=== PATIENT | female | born 1995 | race American Indian/Alaskan Native ===

== ENCOUNTER 2017-10-23 15:30 | Emergency (ER) | payer SELFPAY ==
[2017-10-23 15:38] VITALS: BP 132/76; PULSE 105; RESP 18; TEMP 98.1; O2SAT 99
--- NOTE | 2017-10-23 15:58 | C.PDOC ---
History Of Present Illness 22 y/o female presents to the ED for evaluation of right ankle pain which began yesterday. Patient states she tripped, fell and injured her right ankle yesterday. Patient was evaluated at [facility] (Former[facility]) and was diagnosed with an avulsion fracture/sprain. Patient had a fiberglass splint applied to the area. Patient presents to the ED today stating that her pain has persisted and the splint has become loose. She reports pain is 4/10 in severity to her medial malleolus area. She denies any new trauma/injuries and has no other complaints at this time. Time Seen by Provider: 10/23/17 15:42 Chief Complaint (Nursing): Lower Extremity Problem/Injury History Per: Patient History/Exam Limitations: no limitations Onset/Duration Of Symptoms: Hrs Current Symptoms Are (Timing): Still Present Pain Scale Rating Of: 4 Additional History Per: Patient - Ankle/Foot Description Of Injury: Fell Past Medical History Reviewed: Historical Data, Nursing Documentation, Vital Signs Vital Signs: Last Vital Signs Temp 98.1 F 10/23/17 15:33 Pulse 105 H 10/23/17 15:33 Resp 18 10/23/17 15:33 BP 132/76 10/23/17 15:33 Pulse Ox 99 10/23/17 22:36 - Medical History PMH: Bipolar Disorder Surgical History: No Surg Hx Family History: States: Unknown Family Hx - Social History Hx Alcohol Use: No Hx Substance Use: No Review Of Systems Musculoskeletal: Positive for: Other (right ankle pain ) Physical Exam - Physical Exam Appears: Non-toxic, No Acute Distress Skin: Normal Color, Warm, Dry Extremity: Normal ROM, No Tenderness, Capillary Refill (less than 2 seconds ), No Deformity, No Swelling, Other (splint in place on right foot ) Pulses: Right Dorsalis Pedis: Normal Neurological/Psych: Normal Speech, Normal Cognition, Normal Sensation Gait: Steady ED Course And Treatment O2 Sat by Pulse Oximetry: 99 (on RA) Pulse Ox Interpretation: Normal Medical Decision Making Medical Decision Making: Progress: Splint was redressed. On re-exam, patient is resting comfortably, showing no signs of distress and is stable for discharge. Patient is advised to f/u with orthopedic care within 1-2 days for further evaluation. Disposition - Disposition Disposition: HOME/ ROUTINE Disposition Time: 15:55 Condition: STABLE Additional Instructions: Follow up with Orthopedics as indicated by [facility] [place] [place]. Instructions: Avulsion Fracture (DC) Forms: General Discharge Instructions, [facility] ([place]ian), Work Excuse - POA Present On Arrival: None - Clinical Impression Clinical Impression: Right ankle sprain - Scribe Statement The provider has reviewed the documentation as recorded by the Scribe (Carlee Gonsalez) Provider Attestation: All medical record entries made by the Scribe were at my direction and personally dictated by me. I have reviewed the chart and agree that the record accurately reflects my personal performance of the history, physical exam, medical decision making, and the department course for this patient. I have also personally directed, reviewed, and agree with the discharge instructions and disposition.
== END 2017-10-23 16:00 | disposition home or self-care (01) ==
LOC: C.ER 15:30
DX: S93.401D Sprain of unspecified ligament of right ankle, subsequent encounter (principal); W01.0XXD Fall on same level from slipping, tripping and stumbling without subsequent striking against object, subsequent encounter

== ENCOUNTER 2018-01-03 20:51 | Inpatient (IN) | payer SELFPAY ==
--- NOTE | 2018-01-03 21:15 | C.PDOC ---
History Of Present Illness 22 years old female presents to ED for complaints of feeling depressed. Denies SI, HI, or any other physical complaints. Time Seen by Provider: 01/03/18 21:15 Chief Complaint (Nursing): Psychiatric Evaluation History Per: Patient History/Exam Limitations: no limitations Onset/Duration Of Symptoms: Hrs, Waxing/Waning Suicide/Self Injury Attempted (Context): None Modifying Factor(s): None Associated Symptoms: Depression. denies: Suicidal Thoughts, Suicidal Plan Involuntary Hold By: None Recent travel outside of the [place]: No Additional History Per: Patient Past Medical History Reviewed: Historical Data, Nursing Documentation, Vital Signs Vital Signs: Last Vital Signs Temp 99 F 01/03/18 20:56 Pulse 104 H 01/03/18 20:56 Resp 18 01/03/18 20:56 BP 123/84 01/03/18 20:56 Pulse Ox 98 01/03/18 21:39 - Medical History PMH: Anemia, Anxiety, Bipolar Disorder, Depression Surgical History: No Surg Hx Family History: States: Unknown Family Hx - Social History Hx Alcohol Use: No Hx Substance Use: No - Immunization History Hx Tetanus Toxoid Vaccination: No Hx Influenza Vaccination: No Hx Pneumococcal Vaccination: No Review Of Systems Constitutional: Negative for: Fever, Chills Gastrointestinal: Negative for: Nausea, Vomiting, Abdominal Pain, Diarrhea Skin: Negative for: Rash Neurological: Negative for: Weakness, Numbness Psych: Positive for: Depression. Negative for: Suicidal ideation Physical Exam - Physical Exam Appears: Non-toxic, No Acute Distress Skin: Warm, Dry Head: Normacephalic Eye(s): bilateral: Normal Inspection Oral Mucosa: Moist Neck: Trachea Midline, Supple Chest: Symmetrical Cardiovascular: Rhythm Regular Respiratory: No Decreased Breath Sounds, No Rales, No Rhonchi, No Wheezing Gastrointestinal/Abdominal: Soft, No Tenderness, No Distention Back: Normal Inspection Extremity: Normal ROM Extremity: Bilateral: Atraumatic, Normal Color And Temperature, Normal ROM Neurological/Psych: Oriented x3 Gait: Steady ED Course And Treatment - Laboratory Results Result Diagrams: 01/03/18 21:49 01/03/18 21:49 O2 Sat by Pulse Oximetry: 98 (RA) Pulse Ox Interpretation: Normal Progress Note: Ordered blood work and urinalysis. Crisis notified. Disposition Discussed With : Dereje Urbina Comment: accepted the pt on his service and took over the care at 10:14PM Doctor Will See Patient In The: Hospital Counseled Patient/Family Regarding: Studies Performed, Diagnosis - Disposition Referrals: Non [facility] Provider, [Primary Care Provider] - Disposition: HOSPITALIZED Disposition Time: 21:15 Condition: FAIR Forms: [facility] (Upper Sorbian) - POA Present On Arrival: None - Clinical Impression Clinical Impression: Bipolar disorder - Scribe Statement The provider has reviewed the documentation as recorded by the Alvertoibrudolph Valadez All medical record entries made by the Scribe were at my direction and personally dictated by me. I have reviewed the chart and agree that the record accurately reflects my personal performance of the history, physical exam, medical decision making, and the department course for this patient. I have also personally directed, reviewed, and agree with the discharge instructions and disposition. Decision To Admit - Pt Status Changed To: Hospital Disposition Of: Inpatient - Admit Certification Admit to Inpatient:: After my assessment, the patient will require hospitalization for at least two midnights. This is because of the severity of symptoms shown, intensity of services needed, and/or the medical risk in this patient being treated as an outpatient. - InPatient: Physician Admission Certification: I certify that this patient requires 2 or more midnights of care for the following reason:: After my assessment, the patient will require hospitalization for at least two midnights. This is because of the severity of symptoms shown, intensity of services needed, and/or the medical risk in this patient being treated as an outpatient. - . Bed Request Type: Psychiatry Admitting Physician: Dereje Urbina Patient Diagnosis: Bipolar disorder
[2018-01-03 21:52] LABS: BASO # 0.1 K/uL (0.0-0.2); BASO % 1.1 % (0.0-2.0); EOS # 0.1 K/uL (0.0-0.7); EOS % 0.9 % (0.0-4.0); HEMOGLOBIN 11.1 g/dL (11.0-16.0); LYMPH # 2.4 K/uL (1.0-4.3); LYMPH % 29.7 % (20.0-40.0); MEAN CELL VOLUME 72.4 fL (81.0-99.0); MEAN CORPUSCULAR HEMOGLOBIN 23.4 pg (27.0-31.0); MEAN CORPUSCULAR HGB CONC 32.4 g/dL (33.0-37.0); MEAN PLATELET VOLUME 8.7 fL (7.2-11.7); MONO # 0.7 K/uL (0.0-0.8); MONO % 8.4 % (0.0-10.0); NEUT # 4.7 K/uL (1.8-7.0); NEUT % 59.9 % (50.0-75.0); RBC 4.74 Mil/uL (3.80-5.20); RED CELL DISTRIBUTION WIDTH 16.6 % (11.5-14.5); WHITE BLOOD COUNT 7.9 K/uL (4.8-10.8)
[2018-01-03 22:01] LABS: SQUAMOUS EPITHIAL 6 /hpf (0-5); URINE BILIRUBIN NEGATIVE (NEGATIVE); URINE BLOOD 3+ (NEGATIVE); URINE CLARITY Hazy (Clear); URINE COLOR Yellow (YELLOW); URINE GLUCOSE (UA) NORMAL (Normal); URINE LEUKOCYTE ESTERASE TRACE Leu/uL (Negative); URINE PROTEIN 2+ mg/dL (NEGATIVE); URINE UROBILINOGEN NORMAL mg/dL (0.2-1.0)
[2018-01-03 22:07] LABS: ALB/GLOB RATIO 1.2 (1.0-2.1); ALBUMIN 4.3 g/dL (3.5-5.0); ALT/SGPT 20 U/L (9-52); AST/SGOT 27 U/L (14-36); BLOOD UREA NITROGEN 10 mg/dL (7-17); CALCIUM 9.6 mg/dl (8.6-10.4); GFR AFRICAN-AMERICAN > 60; GFR NON-AFRICAN AMERICAN > 60
[2018-01-03 22:18] LABS: BARBITURATES, UR NEGATIVE (NEGATIVE); BENZODIAZEPINES, UR NEGATIVE (NEGATIVE); OPIATES, UR NEGATIVE (NEGATIVE); PHENCYCLIDINE, UR NEGATIVE (NEGATIVE)
--- NOTE | 2018-01-04 01:36 | PCM.BM ---
Treatment Plan Problems - Problems identified on initial assessmt Problem 1 Date Initiated: 01/04/18 Time Initiated: 01:34 Assessment reference: NA Status: Active Comment: suicidal ideations Problem 2 Date Initiated: 01/04/18 Time Initiated: 01:35 Assessment reference: NA Status: Active Comment: anxiety Treatment assets and liabiliti Patient Assests: cooperative, motivated, ADL independent, physically healthy Patient Liabilities: poor support system, relationship conflicts - Milieu Protocol Maintain good personal hygiene: daily Encourage regular showers, daily Remind patient to perform daily oral care, daily Assist patient to perform ADL's Conduct patient checks and document Observation sheet: Q15 minutes Maintain personal safety: every shift Educate patient to report safety concerns to staff, every shift Monitor environment for contraband/sharps Medication safety: Monitor for expected outcome, potential side effects: every shift, Assess barriers to learning: every shift, Assess readiness for medication education: every shift
--- NOTE | 2018-01-04 11:36 | PCM.PSYCH ---
Initial Psychiatric Evaluation - Initial Psychiatric Evaluation Type of Admission: Voluntary Legal Status: Capacity Chief Complaint (in patient's own words): "I'm feeling depressed" History of Present Illness and Precipitating Events: This is a 22 years old AAF with pphx of Bipolar disorder admitted for worsening of depressive symptoms, including depressed mood, insomnia, loss of appetite, difficult in focus, anhedonia. She denied SI, intent or plan. Pt reported in past she was admitted in hospital in [place] with mood swings , with increase level of energy, expansive mood, with risky behavior including stealing, etc, with racing thoughts and decrease in sleep. Currently pt denied AVH, paranoid delusions. she denied anxiety symptoms Pt reports being involuntarily committed two times, 08/2016 and 09/2016, in [place]. Pt explains that her first involuntary hospitalization occurred subsequent to a suicide attempt in which she cut her wrists. Pt explains the second hospitalization occurred after she smoked marijuana and started hallucinating. Pt reports that she was seeing a counselor in [place] 1x/ week for six months and was diagnosed with Bipolar Disorder. Current Medications: Active Medications Generic Name Dose Route Start Last Admin Trade Name Freq PRN Reason Stop Dose Admin Hydroxyzine HCl 25 mg 01/04/18 00:56 Atarax PO Q6 PRN Anxiety Lamotrigine 25 mg 01/04/18 10:00 01/04/18 10:16 Lamictal PO 25 mg DAILY PHI Administration Trazodone HCl 100 mg 01/04/18 01:01 01/04/18 01:11 Desyrel PO 100 mg HS PRN Administration Insomnia Past Psychiatric History - Past Psychiatric History Previous Treatment History: Inpatient Prior Psychiatric Treatment: medication management At [facility] hospital: [place] Nature of Treatment: Lamictal History of Abuse: denied History of ETOH/Drug Use: Pt reported she was smoking marijuana and she had VH and AH History of Family Illness: denied Pertinent Medical Hx (Current Medical&Sleep Prob, Allergies): Allergies Allergy/AdvReac Type Severity Reaction Status Date / Time No Known Allergies Allergy Unverified 01/03/18 20:52 No Known Home Med 10/23/17 lamoTRIgine [LaMICtal] 25 mg PO DAILY 10/23/17 Review of Systems - Review of Systems All systems: reviewed and no additional remarkable complaints except (please see HPI) Mental Status Examination - Personal Presentation Personal Presentation: Looks stated age, Dressed appropriate to season Additional comments: pt is obese - Affect Affect: Constricted - Motor Activity Motor Activity: Calm, Psychomotor Retardation - Reliability in Providing Information Reliability in Providing Information: Fair - Speech Speech: Organized - Mood Mood: Depressed (chronic mental illness) - Formal Thought Process Formal Thought Process: No Impairment - Obsessions/Compulsions Obsessions: None Compulsions: None - Cognitive Functions Orientation: Person, Place, Situation, Time Sensorium: Alert Attention/Concentration: Attentive Judgement: Intact, as evidence by: Good judgement, Intact, as evidence by: Insight regarding need for hospitalization Memory: Recent intact, as evidence by: Ability to recall events of the day - Risk Risk: Diminished functioning - Strength & Assets Inventory Strength & Assets Inventory: Intelligence, Family support, Employment history - Limitations Limitations: Other DSM 5 DX - DSM 5 DSM 5 Diagnosis: Bipolar 1 d/o mre depressed - Recommended/Plan of Treatment Treatment Recommendations and Plan of Treatment: Continue Lamictal 25 mg po daily. Plan to increase Lamictal to stabilize her mood. Attend groups and activities [place] for abstinence and CBT for relapse prevention Support and psychoeducation Consider and encourage MAT Refer to after care 33 min Projected ELOS: 5-6 days Prognosis: good with meds compliance Discharge Plan and Discharge Criteria: Refer to after care plan - Smoking Cessation Smoking Cessation Initiated: Yes
--- NOTE | 2018-01-05 09:54 | PCM.PYCHPN ---
Psychiatric Progress Note - Psychiatric Progress Note Patient seen today, length of contact: 16 min Patient Chief Complaint: "I feel myself getting better" Problems Identified/Issues Discussed: The patient was seen and evaluated, chart reviewed and discussed with nurse. The patient reports that she is feeling better and her mood is improved since admission. She states that she enjoys being on the unit and interacting with the other patients. She reports that her "mind has cleared" and she feels less emotional than when she came in. She denies any suicidal ideation. The patient reports that talking to the hospice social worker helped her think about her options after leaving from her. She is compliant with her medications and reports no side effects. Medication Change: Yes Medical Record Reviewed: Yes Mental Status Examination - Cognitive Function Orientation: Person, Place, Situation, Time Attention: WNL Concentration: Poor Association: WNL Fund of Knowledge: Poor - Mood Mood: Depressed, Anxious - Affect Affect: Constricted - Speech Speech: Appropriate - Formal Thought Process Formal Thought Process: No Impairment - Suicidal Ideation Suicidal Ideation: No - Homicidal Ideation Homicidal Ideation: No Goal/Treatment Plan - Goal/Treatment Plan Need for Continued Stay: Severe depression anxiety, Severe functional impairment Progress Toward Problem(s) and Goals/Treatment Plan: Bipolar 1 d/o mre depressed Continue Lamictal 25 mg po daily. Plan to increase Lamictal to stabilize her mood. Attend groups and activities [place] for abstinence and CBT for relapse prevention Support and psychoeducation Consider and encourage MAT Refer to after care
--- NOTE | 2018-01-06 15:52 | PCM.BM ---
<Ramonita Mohamud C - Last Filed: 01/06/18 15:50> Treatment Plan Problems - Problems identified on initial assessmt Depression Date Initiated: 01/04/18 Time Initiated: :34 Assessment reference: NA Status: Active Comment: suicidal ideations Problem 2 Date Initiated: 01/04/18 Time Initiated: 01:35 Assessment reference: NA Status: Active Comment: anxiety Treatment assets and liabiliti Patient Assests: cooperative, motivated, ADL independent, physically healthy Patient Liabilities: live alone, poor support system, relationship conflicts, substance abuse (None) - Milieu Protocol Maintain good personal hygiene: daily Encourage regular showers, daily Remind patient to perform daily oral care, daily Assist patient to perform ADL's Conduct patient checks and document Observation sheet: Q15 minutes (Safety) Maintain personal safety: every shift Educate patient to report safety concerns to staff, every shift Monitor environment for contraband/sharps Medication safety: Monitor for expected outcome, potential side effects: every shift, Assess barriers to learning: every shift, Assess readiness for medication education: every shift Milieu Narrative: Continue Lamictal 25 mg po daily. Plan to increase Lamictal to stabilize her mood. Attend groups and activities [place] for abstinence and CBT for relapse prevention Support and psychoeducation Consider and encourage MAT Refer to after care 33 min Discharge/Continuing Care - Treatment Team Participation Patient/Family/SO Statement: Continue Lamictal 25 mg po daily. Plan to increase Lamictal to stabilize her mood. Attend groups and activities [place] for abstinence and CBT for relapse prevention Support and psychoeducation Consider and encourage MAT Refer to after care 33 min <Iliana Taylor - Last Filed: 01/06/18 15:56> Treatment Plan Problems - Problems identified on initial assessmt Depression Date Initiated: 01/04/18 Time Initiated: :34 Assessment reference: NA Status: Active Comment: suicidal ideations Problem 2 Date Initiated: 01/04/18 Time Initiated: 01:35 Assessment reference: NA Status: Active Comment: anxiety Problem 1 Date Initiated: 01/04/18 Time Initiated: :34 Assessment reference: NA Status: Active Comment: suicidal ideations Family Contact Family involvement: Patient does not wish Family/SO involvement Family contact: Patient declines to allow family contact at present - Goals for Treatment Patient goals for treatment: "I want to go to [facility] for treatment." Discharge/Continuing Care - Education Needs Education Needs: Patient Medication, Patient Diagnosis/Disease Process, Patient Coping Skills, Patient Placement options, Patient Community resources - Discharge Discharge Criteria: Free of Suicidal thoughts, Normal sleep pattern, Ability to care for self, No longer exhibiting s/s of withdrawal, Reduction of target symptoms Discharge to:: Home, With Family - Treatment Team Participation Discussed with Family/SO: No Was Patient/Family/SO present at Treatment Team Meeting: Yes <Rito Estrella - Last Filed: 01/07/18 03:53> - Diagnosis (1) Bipolar disorder Status: Acute Interventions: 01/07/18 03:53 * Assess/adjust medications daily and /or as needed * See patient on an individual basis 7x/week to assess level of manic behaviors and stability * Discuss risks, benefits, side effects and alternatives of medications *
--- NOTE | 2018-01-07 05:58 | PCM.PYCHPN ---
Psychiatric Progress Note - Psychiatric Progress Note Patient seen today, length of contact: 16 min Patient Chief Complaint: "I feel myself getting better" Problems Identified/Issues Discussed: The patient was seen and evaluated, chart reviewed and discussed with nurse. The patient reports that she is feeling better and her mood is improved since admission. She states that she enjoys being on the unit and interacting with the other patients. She reports that her "mind has cleared" and she feels less emotional than when she came in. She denies any suicidal ideation. The patient reports that talking to the social problems specialist helped her think about her options after leaving from her. She is compliant with her medications and reports no side effects. Medication Change: Yes Medical Record Reviewed: Yes Mental Status Examination - Cognitive Function Orientation: Person, Place, Situation, Time Attention: WNL Concentration: Poor Association: WNL Fund of Knowledge: Poor - Mood Mood: Depressed, Anxious - Affect Affect: Constricted - Speech Speech: Appropriate - Formal Thought Process Formal Thought Process: No Impairment - Suicidal Ideation Suicidal Ideation: No - Homicidal Ideation Homicidal Ideation: No Goal/Treatment Plan - Goal/Treatment Plan Need for Continued Stay: Severe depression anxiety, Severe functional impairment Progress Toward Problem(s) and Goals/Treatment Plan: Bipolar 1 d/o mre depressed Continue Lamictal 25 mg po daily. Plan to increase Lamictal to stabilize her mood. Attend groups and activities [place] for abstinence and CBT for relapse prevention Support and psychoeducation Consider and encourage MAT Refer to after care - Smoking Cessation Smoking Cessation Initiated: No
--- NOTE | 2018-01-07 14:37 | PCM.PYCHPN ---
Psychiatric Progress Note - Psychiatric Progress Note Patient seen today, length of contact: 15 minutes Patient Chief Complaint: I am feeling better. When can I go home. Problems Identified/Issues Discussed: Patient seen, chart reviewed, case was discussed with the staff. Issues related to illness and treatment were discussed with the staff and the patient. Reported compliant with treatment with no adverse effects. Tolerating treatment very well. Patient reported feeling much better. Patient was calm and cooperative. Risks and benefits of medications were discussed with the patient. After clear discussed with patient. At the time of evaluation, patient was awake alert oriented x3, no delusions, no auditory hallucination or visual hallucinations, no suicidal or homicidal ideations. Medical Problems: None reported Diagnostic Results: Reviewed DSM 5 Symptoms Update: Improving with treatment. Medication Change: No Medical Record Reviewed: Yes Mental Status Examination - Cognitive Function Orientation: Person, Place, Situation, Time Memory: Intact Attention: WNL Concentration: WNL Association: [facility] Fund of Knowledge: [facility] Decription of patient's judgement and insights: Fair - Mood Mood: Depressed (Much less than before) - Affect Affect: Other (Appropriate) - Speech Speech: Appropriate - Formal Thought Process Formal Thought Process: No Impairment Psychotic Thoughts and Behaviors: None - Suicidal Ideation Suicidal Ideation: No - Homicidal Ideation Homicidal Ideation: No Goal/Treatment Plan - Goal/Treatment Plan Need for Continued Stay: Remain at risks for inpatient hospitalization, Discharge may exacerbated symptoms, Severe functional impairment Progress Toward Problem(s) and Goals/Treatment Plan: Improving. Patient education. Supportive therapy. Continue treatment as before. Estimated Date of D/C: 01/10/18 - Smoking Cessation Smoking Cessation Initiated: No
--- NOTE | 2018-01-08 17:54 | PCM.PYCHPN ---
Psychiatric Progress Note - Psychiatric Progress Note Patient seen today, length of contact: 15 minutes Patient Chief Complaint: I am feeling much better. Problems Identified/Issues Discussed: Patient seen, chart reviewed, case was discussed with the staff. Issues related to illness and treatment were discussed with the staff and the patient. Reported compliant with treatment with no adverse effects. Tolerating treatment very well. Patient reported feeling much better. Patient was calm and cooperative. Risks and benefits of medications were discussed with the patient. After clear discussed with patient. At the time of evaluation, patient was awake alert oriented x3, no delusions, no auditory hallucination or visual hallucinations, no suicidal or homicidal ideations. Medical Problems: None reported Diagnostic Results: Reviewed DSM 5 Symptoms Update: Improving with treatment Medication Change: No Medical Record Reviewed: Yes Mental Status Examination - Cognitive Function Orientation: Person, Place, Situation, Time Memory: Intact Attention: WNL Concentration: WNL Association: [facility] Fund of Knowledge: [facility] Decription of patient's judgement and insights: Fair - Mood Mood: Neutral - Affect Affect: Other (Appropriate) - Speech Speech: Appropriate - Formal Thought Process Formal Thought Process: No Impairment Psychotic Thoughts and Behaviors: None - Suicidal Ideation Suicidal Ideation: No - Homicidal Ideation Homicidal Ideation: No Goal/Treatment Plan - Goal/Treatment Plan Need for Continued Stay: Remain at risks for inpatient hospitalization, Discharge may exacerbated symptoms, Severe functional impairment Progress Toward Problem(s) and Goals/Treatment Plan: Improving. Patient education. Supportive therapy. Continue treatment as before. Estimated Date of D/C: 01/10/18 - Smoking Cessation Smoking Cessation Initiated: No
[2018-01-09 06:02] VITALS: BP 111/62; PULSE 68; RESP 18; TEMP 98.1; O2SAT 97
--- NOTE | 2018-01-09 10:40 | PCM.PYCHDC ---
Mental Status Examination - Mental Status Examination Orientation: Person, Place, Situation, Time Memory: Intact Mood: Neutral Affect: Constricted Speech: Soft Attention: WNL Concentration: WNL Association: WNL Fund of Knowledge: WNL Formal Thought Process: No Impairment Description of patient's judgement and insight: good, fair Psychotic Thoughts and Behaviors: Denies any AVH Suicidal Ideation: No Current Homicidal Ideation?: No Discharge Summary - Discharge Note Reason for Hospitalization: This is a 22 years old AAF with pphx of Bipolar disorder admitted for worsening of depressive symptoms, including depressed mood, insomnia, loss of appetite, difficult in focus, anhedonia. She denied SI, intent or plan. Pt reported in past she was admitted in hospital in [place] with mood swings , with increase level of energy, expansive mood, with risky behavior including stealing, etc, with racing thoughts and decrease in sleep. Currently pt denied AVH, paranoid delusions. she denied anxiety symptoms Pt reports being involuntarily committed two times, 08/2016 and 09/2016, in [place]. Pt explains that her first involuntary hospitalization occurred subsequent to a suicide attempt in which she cut her wrists. Pt explains the second hospitalization occurred after she smoked marijuana and started hallucinating. Pt reports that she was seeing a counselor in [place] 1x/ week for six months and was diagnosed with Bipolar Disorder. Psychiatric History (includes Medical, Family, Personal Hx): Lamictal Consultations:: List each consultation separately and include: 1. Reason for request. 2. Findings. 3. Follow-up Summary of Hospital Course include:: 1. Description of specific treatment plan utilized for patients during their course of treatmen. 2. Summarize the time- course for resolution of acute symptoms and/or regressed behaviors. 3. Describe issues identified and worked on during hospitalization. 4. Describe medication utilized. 5. Describe medical problems identified and treated. 6. Reassessment of suicide risk - Diagnosis (1) Bipolar disorder Current Visit: Yes Status: Acute - Final Diagnosis (DSM 5) Condition upon Discharge: FAIR DSM 5: Bipolar 1 d/o mre depressed Disposition: HOME/ ROUTINE Follow-up Treatment Plan: Bipolar 1 d/o mre depressed Continue Lamictal 25 mg po daily. Plan to increase Lamictal to stabilize her mood. Attend groups and activities [place] for abstinence and CBT for relapse prevention Support and psychoeducation Consider and encourage MAT Refer to after care Prescriptions/Medication Reconciliation: lamoTRIgine [Lamictal] 25 mg PO BID #60 tab traZODone [Desyrel] 100 mg PO HS PRN #30 tab PRN Reason: Insomnia
== END 2018-01-07 13:04 | disposition home or self-care (01) | DRG 885 ==
LOC: C.ER 20:51 → SUPCPDRO 20:51 → C.5E 22:43
PROC: GZ3ZZZZ Medication Management (ICD-10-PCS; principal; 2018-01-03)
PROC: GZHZZZZ Group Psychotherapy (ICD-10-PCS; 2018-01-03)
PROC: GZ56ZZZ Individual Psychotherapy, Supportive (ICD-10-PCS; 2018-01-03)
DX: F31.30 Bipolar disorder, current episode depressed, mild or moderate severity, unspecified (principal); F12.90 Cannabis use, unspecified, uncomplicated; G47.00 Insomnia, unspecified; Z91.5 Personal history of self-harm